=== PATIENT | female | born 1940 | race Caucasian/White ===

== ENCOUNTER 2023-09-10 17:15 | Emergency (ER) | payer OTHER ==
[~2023-09-10] VITALS: Ht 154.9 cm; Wt 63.5 kg
[2023-09-10] MEDS ORDERED: LEVOTHYROXINE75 MC1 PO (17:31)
[2023-09-10] MEDS ORDERED: AMLODIPINE-OLM1 EAC3 (17:31)
[2023-09-10] MEDS ORDERED: LANTUS SOL100 UNIT/1 SQ (17:32)
[2023-09-10] MEDS ORDERED: NOVOLOG100 UNIT/1 SQ (17:32)
[2023-09-10 18:06] LABS: URINE APPEARANCE Clear; URINE BILIRRUBIN Negative (NEGATIVE); URINE BLOOD Negative; URINE COLOR Yellow; URINE LEUKOCYTE Negative; URINE NITRATE Negative; URINE PROTEIN Negative (NEGATIVE); URINE UROBILINOGEN 0.2 E.U./dl
[2023-09-10 18:11] LABS: URINE EPITHELIAL CELLS 2.7 uL (0.0-38.8); URINE WBC 5.5 uL (0.0-23.2)
[2023-09-10 18:18] LABS: URINE GLUCOSE >=1000 MG/DL (NEGATIVE); URINE RBC 1.2 uL (0.0-20.8)
[2023-09-10 18:32] LABS: HEMATOCRIT 44.2 % (36.0-45.00); HEMOGLOBIN 14.9 g/dL (12.0-15.00); MEAN CELL VOLUME 88.8 fL (80.00-100.00); MEAN CORPUSCULAR HEMOGLOBIN 29.8 pg (27.00-32.0); MEAN CORPUSCULAR HGB CONC 33.6 g/dl (32.0-36.0); PLATELET COUNT 198 K/uL (150-450); RED BLOOD COUNT 4.98 M/uL (4.00-6.00); RED CELL DISTRIBUTION WIDTH 14.3 % (11.5-14.5)
[2023-09-10 19:37] LABS: ALBUMIN 3.7 gm/dL (3.4-5.0); BILIRUBIN TOTAL 0.34 mg/dL (0.3-1.2); CALCIUM 7.8 mg/dL (8.5-10.1); CREATININE SERUM 0.67 mg/dL (0.55-1.02); GFR 84.26; GLOBULINA 3.4 G/DL (2.4-3.5); POTASSIUM 4.53 mEq/L (3.5-5.1); TOTAL PROTEIN 7.1 gm/dL (6.4-8.2)
== END 2023-09-10 21:25 | disposition home or self-care (01) ==
LOC: ER 17:15
PROVIDERS: General Practice
DX: E11.649 Type 2 diabetes mellitus with hypoglycemia without coma (principal); I10 Essential (primary) hypertension; E03.9 Hypothyroidism, unspecified; Z79.4 Long term (current) use of insulin